=== PATIENT | female | born 1960 | race Caucasian/White ===

== ENCOUNTER → 2016-11-14 | Day surgery (SDC) | payer OTHER ==
[~2016-11-14] VITALS: Ht 157.4 cm; Wt 46.3 kg
[~2016-11-14] MED LIST: PRILOSEC20 M1 PO
--- NOTE | ~2016-11-14 | PROC NOTE ---
[place], [place] PROCEDURE NOTE NAME: MIKE LEE UNIT #: [id number] ROOM: DOCTOR: MOSES HEATH MD BIRTHDATE: [birth year] DOS: 11/14/2016 PREOPERATIVE DIAGNOSIS: Screening examination. POSTOPERATIVE DIAGNOSIS: Screening examination. PROCEDURE: Colonoscopy. ENDOSCOPIST: Moses Heath MD [employer] INSULATOR: [id number]. ANESTHESIA: MAC. INDICATIONS: This is a 56-year-old lady with no previous history of any colonoscopy or any past medical history suggestive of colon cancer who is here for a screening examination. The procedure and its complications were explained to the patient in detail. Complications that were discussed included, but were not limited to bleeding, colon perforation, and missed lesions. She agreed to proceed. DESCRIPTION OF PROCEDURE: After identifying the patient, the patient was brought to the endoscopy suite and placed in the left lateral position. After time-out procedure was called, IV sedation was administered and a digital rectal exam was performed, which was within normal limits. An adult colonoscope was now introduced into the anal canal and advanced sequentially into the rectum, sigmoid colon, descending colon, transverse colon and ascending colon up to the cecum. The prep was found to be optimal. Upon reaching the cecum, the scope was withdrawn. Total withdrawal time was approximately 7 minutes. Upon withdrawal, the patient was taken to the recovery room in stable fashion. There were no complications. Based on these findings, the patient is recommended to have another colonoscopy in approximate 10 years or sooner if there are new symptoms develop. I have discussed these findings with the patient's in the postoperative care unit. I will discuss this with the patient herself in approximately 2-3 weeks when she sees me in the office. Moses Heath MD CM:PROCNOTE:PROCEDURE NOTE [id number] MOSES HEATH MD
[2016-11-14 07:30] VITALS: BP 119/66
[2016-11-14 08:56] VITALS: BP 95/56
[2016-11-14 09:10] VITALS: BP 95/57
[2016-11-14 09:20] VITALS: BP 101/59
== END | disposition home or self-care (01) ==
LOC: SDC 11-12 12:30
DX: Z12.11 Encounter for screening for malignant neoplasm of colon (principal); K21.9 Gastro-esophageal reflux disease without esophagitis; F32.9 Major depressive disorder, single episode, unspecified; F17.210 Nicotine dependence, cigarettes, uncomplicated; Z82.49 Family history of ischemic heart disease and other diseases of the circulatory system; Z80.9 Family history of malignant neoplasm, unspecified

== ENCOUNTER 2024-02-07 01:55 | Emergency (ER) | payer OTHER ==
[~2024-02-07] VITALS: Ht 157.4 cm; Wt 42.2 kg
[2024-02-07 02:11] LABS: BASO # 0.1 10*3/uL (0.0-0.1); BASO % 0.9 % (0.0-1.0); EOS # 0.3 10*3/uL (0.0-0.4); EOS % 3.5 % (1.0-4.0); HEMATOCRIT 42.7 % (37.0-47.0); LYMPH # 3.7 10*3/uL (1.3-4.4); LYMPH % 37.6 % (27.0-41.0); MEAN CELL VOLUME 95.3 fl (81.0-99.0); MEAN CORPUSCULAR HGB 30.6 pg (27.0-31.0); MEAN CORPUSCULAR HGB CONC 32.1 g/dl (33.0-37.0); MEAN PLATELET VOLUME 9.6 fl (9.6-12.3); MONO # 0.7 10*3/uL (0.1-1.0); MONO % 6.6 % (3.0-9.0); NEUT % 51.2 % (47.0-73.0); PLATELET COUNT AUTOMATED 315 10*3/uL (130-400); RED BLOOD COUNT 4.48 10*6/uL (4.10-5.10); RED CELL DISTRI WIDTH 14.6 % (0-14.5); WHITE BLOOD COUNT 9.8 10*3/uL (4.8-10.8)
[2024-02-07 02:42] LABS: BUN 9 mg/dl (9-23); CHLORIDE 107 mmol/L (98-107); ETHYL ALCOHOL < 3.0 mg/dl (<3); POTASSIUM 3.7 mmol/L (3.4-5.1)
[2024-02-07 03:59] LABS: BILIRUBIN Negative (Negative); BLOOD Negative (Negative); CLARITY Clear (Clear); COLOR Yellow (Yellow); GLUCOSE Negative (Negative); KETONE Trace (Negative); LEUKO ESTERASE Trace (Negative); NITRITE Negative (Negative); PH 5.5 (4.5-8.0); SPECIFIC GRAVITY 1.015 (1.001-1.030)
[2024-02-07 04:06] LABS: RBC 0-2 rbc/hpf (0-2); URINE AMPHETAMINES Negative (1000ng/ml); URINE BARBITURATES Negative (200ng/ml); URINE BENZODIAZEPINES Negative (200ng/ml); URINE CANNABINOIDS (THC) Negative (50ng/ml); URINE COCAINE Negative (300ng/ml); URINE METHADONE Negative (300ng/ml); URINE OPIATES Negative (300ng/ml); URINE PHENCYCLIDINE Negative (25ng/ml)
[2024-02-07 04:07] LABS: BACTERIA 1+; MUCOUS 1+
[2024-02-07] MEDS ORDERED: Tdap Vaccine 0.5 ML SYR (Adult Vaccine) IM ONE (04:50)
[2024-02-07] MEDS ORDERED: Ondansetron Hydrochloride 4 MG TAB SL ONE (04:50)
[2024-02-07] MEDS ORDERED: Acetaminophen/Hydrocodone 5 MG/325 MG TABLET PO ONE (04:50)
[2024-02-07] MEDS ORDERED: HYDROCODONE-AC1 EAC1 PO (05:49)
[2024-02-07] MEDS ORDERED: Bacitracin Zinc 14 GM TUBE T ONE (05:55)
== END 2024-02-07 06:05 | disposition home or self-care (01) ==
LOC: ED 01:55
PROVIDERS: Internal Medicine
DX: S42.031A Displaced fracture of lateral end of right clavicle, initial encounter for closed fracture (principal); S01.81XA Laceration without foreign body of other part of head, initial encounter; S00.83XA Contusion of other part of head, initial encounter; N18.31 Chronic kidney disease, stage 3a; F32.A Depression, unspecified; K21.9 Gastro-esophageal reflux disease without esophagitis; R55 Syncope and collapse; Z98.51 Tubal ligation status; Z98.890 Other specified postprocedural states; W19.XXXA Unspecified fall, initial encounter; Y93.89 Activity, other specified; Y92.009 Unspecified place in unspecified non-institutional (private) residence as the place of occurrence of the external cause; Y99.8 Other external cause status